=== PATIENT | male | born 1980 | race American Indian/Alaskan Native ===

== ENCOUNTER 2018-06-01 02:00 | Emergency (ER) | payer OTHER ==
[2018-06-01 02:41] VITALS: BP 121/79
[2018-06-01] MEDS ORDERED: BOOSTRIX IM ONE (03:15)
[2018-06-01] MEDS ORDERED: KEFLEX PO ONE (03:16)
[2018-06-01] MEDS ORDERED: NORCO 5/325 PO ONE (03:16)
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
[2018-06-01] MEDS ORDERED: THERMAZENE 50 GRAM TP ONE (03:46)
== END 2018-06-01 04:14 | disposition home or self-care (01) ==
LOC: ED 02:00
DX: T20.26XA Burn of second degree of forehead and cheek, initial encounter (principal); T21.22XA Burn of second degree of abdominal wall, initial encounter; T21.21XA Burn of second degree of chest wall, initial encounter; T79.9XXA Unspecified early complication of trauma, initial encounter; X08.8XXA Exposure to other specified smoke, fire and flames, initial encounter; W40.8XXA Explosion of other specified explosive materials, initial encounter; Y93.89 Activity, other specified; Y92.89 Other specified places as the place of occurrence of the external cause; Y99.8 Other external cause status
CPT/HCPCS: 90471; 90715